=== PATIENT | female | born 1965 | race Caucasian/White ===

== ENCOUNTER 2016-09-17 20:30 | Emergency (ER) | payer BC ==
[~2016-09-17] VITALS: Ht 175.3 cm; Wt 72.0 kg
--- OUTSIDE RECORDS SUMMARY | 2016-09-17 20:34 | XMS REPORT | Continuity of Care Document ---
Author Author [facility] Organization [facility] Address Unknown Phone Unavailable Allergies Medications Problems Procedures Results Encounters ACCT No. Visit Date/Time Discharge Status Pt. Type Provider Facility Loc./Unit Complaint [id number] 08/11/2013 10:19:00 2013 12:25:00 DIS Outpatient Dung KHANNA, Joshua Orozco [facility] [place]
[2016-09-17 20:55] VITALS: TEMP 98.3; Ht 175.3 cm; Wt 72.0 kg
--- OUTSIDE RECORDS SUMMARY | 2016-09-17 21:39 | XMS REPORT | Continuity of Care Document ---
Author Author [facility] Organization [facility] Address Unknown Phone Unavailable Allergies Medications Problems Procedures Results Encounters ACCT No. Visit Date/Time Discharge Status Pt. Type Provider Facility Loc./Unit Complaint [id number] 08/11/2013 10:19:00 2013 12:25:00 DIS Outpatient Dung KHANNA, Joshua Orozco [facility] [place]
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
--- NOTE | 2016-09-17 22:12 | NUR ---
ICE/ELEVATE PT IS GIVEN ICE PACK AND PILLOW FOR ELEVATION AT THIS TIME.
[2016-09-17] MEDS ORDERED: IBUPROFEN 600 MG TABLET PO ONE (22:15)
--- NOTE | 2016-09-17 22:17 | NUR ---
XR IN ROOM FOR PORTABLE XR AT THIS TIME.
[2016-09-17 23:30] VITALS: BP 105/61; PULSE 66; RESP 12; O2SAT 100
--- NOTE | 2016-09-17 23:30 | NUR ---
DEPART PT IS DISHARGED AT THIS TIME, INSTRUCTIONS ARE REVIEWED AND UNDERSTANDING IS VOICED. PT LEAVES AMBULATORY.
--- NOTE | 2016-09-18 07:58 | DI ---
Indication: ITS.REASON: pain over radius after FOOSH PROCEDURE: WRIST LEFT 3-4 VIEWS: Encounter: Initial Comparison: December 30, 2009 Findings: There is no acute fracture, dislocation or malalignment identified. Impression: No acute osseous abnormality. .
== END 2016-09-17 23:30 | disposition home or self-care (01) ==
LOC: ED 20:30
DX: S63.502A Unspecified sprain of left wrist, initial encounter (principal); S49.92XA Unspecified injury of left shoulder and upper arm, initial encounter; V18.0XXA Pedal cycle driver injured in noncollision transport accident in nontraffic accident, initial encounter; Y93.55 Activity, bike riding; Y92.414 Local residential or business street as the place of occurrence of the external cause; Y99.8 Other external cause status